=== PATIENT | male | born 1955 | race Caucasian/White ===

== ENCOUNTER → 2017-11-22 | Outpatient (CLI) | payer OTHER ==
--- NOTE | 2017-11-22 09:32 | CT ---
EXAMINATION TYPE: CT chest w con DATE OF EXAM: 11/22/2017 COMPARISON: 03/26/2015 and 07/05/2013. HISTORY: Patient complains of cough at time of exam. Follow up for known lung nodules. CT DLP: 208.3 mGycm. Automated Exposure Control for Dose Reduction was Utilized. TECHNIQUE: CT scan of the thorax is performed following with IV Contrast, patient injected with 100 mL of Isovue 300. FINDINGS: LUNGS: There is a stable 4 mm right upper lobe posterior apical pulmonary nodule measuring 4 mm in co mparison to exam of 03/26/2015 and 07/05/2013. Along the right minor fissure there is a stable 5 mm no dule. Along the left interlobar fissure there are 2 adjacent stable 6 and 5 mm solid pulmonary nodule s. These are all solid in nature. No new pulmonary nodule or mass is identified. Punctate 2 mm pulmon miracle nodule on series 4 image 32 within the right upper lobe is retrospectively unchanged. Additionall y 3 mm right apical pulmonary nodule on series 4 image 15 is also retrospectively unchanged. No new f ocal consolidation is present. There is no pleural effusion or pneumothorax seen. The tracheobronc hial tree is patent. MEDIASTINUM: There are no greater than 1 cm hilar or mediastinal lymph nodes. No pericardial effusi on is seen. OTHER: Unchanged hepatic cyst measures 9 mm. There is minimal symmetric bilateral retroareolar gyneco mastia. Initial visualization of cervical fusion is seen. Minimal degenerative changes of the thoraci c spine are noted. IMPRESSION: Stable multiple bilateral pulmonary nodules dating back to 2013 that should be considered benign unless this patient is at high risk for development of lung carcinoma.
== END | disposition home or self-care (01) ==
LOC: RADCTMAIN 08:42
PROVIDERS: ATTEND Internal Medicine
DX: R91.8 Other nonspecific abnormal finding of lung field (principal)
CPT/HCPCS: 71260; Q9967

== ENCOUNTER → 2017-11-29 | Outpatient (CLI) | payer OTHER ==
--- NOTE | 2017-11-29 16:02 | CT ---
EXAMINATION TYPE: CT sinus wo con DATE OF EXAM: 11/29/2017 COMPARISON: CT facial bones July 01, 2010 HISTORY: Cough x6 months per patient. Chronic sinusitis per order. CT DLP: 605.9 mGycm. Automated Exposure Control for Dose Reduction was Utilized. TECHNIQUE: CT scan of the sinuses is performed without contrast, axial images are obtained, coronal r eformatted images are also reviewed. FINDINGS: There is mild to moderate mucosal thickening posteriorly in the right maxillary sinus with suspected 1.7 cm mucous retention cyst or polyp on coronal images. Cannot exclude some dependent flui d. There is mild mucosal thickening involving medial and anterior aspects of the right maxillary sinu s. There is mild to moderate mucosal thickening anteriorly and superiorly in the left maxillary sinus along the orbital floor. There is mild to moderate mucosal thickening involving ethmoid sinuses bila terally is prominent anteriorly. There is some lobulated mild to moderate mucosal thickening involvin g anterior left sphenoid sinus on current study. There is suspected mucous retention cyst or polyp in the single left frontal sinus axial image 24 redemonstrated The surgically treated ostiomeatal compl ex is patent bilaterally on the coronal images. Visualized portion of mastoid air cells show no abnormal opacification. The globes are intact bilate rally. IMPRESSION: Chronic paranasal sinus disease redemonstrated more prominent versus prior, some mild acu te sinus disease in the right maxillary sinus is felt present despite patency of bilateral ostiomeata l complexes after surgery.
== END | disposition home or self-care (01) ==
LOC: RADCTMAIN 15:38
PROVIDERS: ATTEND Otolaryngology
DX: J32.0 Chronic maxillary sinusitis (principal); J32.8 Other chronic sinusitis; Z98.890 Other specified postprocedural states
CPT/HCPCS: 70486

== ENCOUNTER → 2018-11-28 | Outpatient (CLI) | payer BC ==
--- NOTE | 2018-11-28 14:56 | XR ---
EXAMINATION TYPE: XR chest 2V DATE OF EXAM: 11/28/2018 COMPARISON: NONE HISTORY: Productive cough for a few months TECHNIQUE: Frontal and lateral views of the chest are obtained. FINDINGS: There is no focal air space opacity, pleural effusion, or pneumothorax seen. There is pulm onary hyperinflation with flattening of the diaphragms on the lateral view and mild biapical lucency with right apical pleural parenchymal scarring. The cardiac silhouette size is within normal limits. The osseous structures are intact. Partial visualization of a cervical fusion device. IMPRESSION: No acute cardiopulmonary process. Radiographic findings suggesting underlying COPD.
== END | disposition home or self-care (01) ==
LOC: RADXRMAIN 14:15
PROVIDERS: ATTEND Otolaryngology
DX: R05 Cough (principal)
CPT/HCPCS: 71046

== ENCOUNTER → 2024-12-10 | Outpatient (CLI) | payer MEDICARE ==
--- NOTE | 2024-12-10 11:35 | XR ---
EXAMINATION TYPE: XR chest 2V DATE OF EXAM: 12/10/2024 11:12 AM COMPARISON: Chest radiographs from 11/28/2018. CLINICAL INDICATION: Male, 69 years old with history of J44.9 CHRONIC OBSTRUCTIVE PULMONARY DISEASE, UNSPE; [facility] TECHNIQUE: XR chest 2V Frontal and lateral views of the chest. FINDINGS: Lungs/Pleura: There is flattening of the diaphragm with increased lucency of the lungs. No evidence o f pneumothorax, pleural effusion or focal consolidation. Pulmonary vascularity: Unremarkable. Heart/mediastinum: Cardiomediastinal silhouette is unremarkable. Musculoskeletal: No acute osseous pathology. There is fixation hardware in the lower cervical spine. IMPRESSION: 1. No acute cardiopulmonary disease process. 2. COPD changes. [facility], , 12/10/2024 11:32 AM
== END | disposition home or self-care (01) ==
LOC: RADXRMAIN 10:52
PROVIDERS: ATTEND Family Medicine
DX: J44.9 Chronic obstructive pulmonary disease, unspecified (principal)
CPT/HCPCS: 71046